=== PATIENT | male | born 1950 | race Caucasian/White ===

== ENCOUNTER → 2021-07-24 | Outpatient (CLI) | payer OTHER ==
[~2021-07-24] MED LIST: ASPI81TA26 PO; BYST10TA2 PO; FISH7.5C PO; GLIM2TAB4 PO; JANU50TA4 PO; LOSA100T45 PO; METF750T36 PO; MULTTAB PO; VITMTA PO; ZETI10TA16 PO
== END ==
LOC: M LABSMTC 10:56
PROVIDERS: ATTEND Anesthesiology
DX: Z01.818 Encounter for other preprocedural examination (principal); Z11.52 Encounter for screening for COVID-19

== ENCOUNTER 2021-07-27 06:34 | Day surgery (SDC) | payer OTHER ==
[~2021-07-27] VITALS: Ht 170.2 cm; Wt 82.1 kg
[~2021-07-27 06:34] MED LIST changes: +NS 1,000 ML IV ONE
[2021-07-27] MEDS ORDERED: propofoL 200 MG/20 ML VIAL As Ordered ONE (06:45)
[2021-07-27] MEDS ORDERED: LIDOCAINE 2% 100MG/5ML SDV (FOR ANES.) As Ordered ONE (06:45)
[2021-07-27 09:00] VITALS: BP 116/69
== END 2021-07-27 09:06 | disposition home or self-care (01) ==
LOC: M OPP 06:34
PROVIDERS: ATTEND Internal Medicine Gastroenterology
DX: Z12.11 Encounter for screening for malignant neoplasm of colon (principal); Z86.010 Personal history of colon polyps; D12.8 Benign neoplasm of rectum; K64.0 First degree hemorrhoids; I10 Essential (primary) hypertension; E78.00 Pure hypercholesterolemia, unspecified; E11.9 Type 2 diabetes mellitus without complications; Z79.82 Long term (current) use of aspirin; Z79.84 Long term (current) use of oral hypoglycemic drugs; Z79.899 Other long term (current) drug therapy

== ENCOUNTER 2021-12-04 05:47 | Inpatient (IN) | payer OTHER ==
[~2021-12-04] VITALS: Ht 170.2 cm; Wt 91.5 kg
[~2021-12-04 05:47] MED LIST changes: +FISH10005 PO; -FISH7.5C PO; -NS 1,000 ML IV ONE
[2021-12-04 06:11] LABS: BASO # 0.1 10^3/uL (0.0-0.2); BASO % 1.1 % (0.0-1.0); EOS # 0.2 10^3/uL (0.0-0.5); EOS % 2.7 % (0.0-3.0); HEMATOCRIT 41.9 % (42.0-52.0); HEMOGLOBIN 14.1 g/dl (13.5-17.5); LYMPH # 2.4 10^3/uL (1.5-5.0); MEAN CORPUSCULAR HEMOGLOBIN 30.3 pg (27.0-33.0); MEAN CORPUSCULAR HGB CONC 33.7 g/dl (32.0-36.5); MEAN CORPUSCULAR VOLUME 89.9 fl (80.0-96.0); MONO # 0.7 10^3/uL (0.0-0.8); MONO % 10.9 % (2.0-8.0); PLATELET COUNT, AUTOMATED 289 10^3/uL (150-450); RED BLOOD COUNT 4.66 10^6/uL (4.30-6.10); WHITE BLOOD COUNT 6.4 10^3/uL (4.0-10.0)
[2021-12-04] MEDS ORDERED: AMLO1TAB24 PO (06:14)
[2021-12-04 06:44] LABS: ALBUMIN 4.1 GM/DL (3.2-5.2); ALT/SGPT 31 U/L (12-78); BILIRUBIN,DIRECT 0.2 MG/DL (0.0-0.2); BILIRUBIN,TOTAL 0.5 MG/DL (0.2-1.0); CK-MB VALUE MASS 3.8 NG/ML (<3.6); LIPASE 547 U/L (73-393); MB/CK RELATIVE INDEX 1.24 (< OR =4); TOTAL PROTEIN 6.9 GM/DL (6.4-8.2)
[2021-12-04 06:45] LABS: INR 0.84; PROTHROMBIN TIME 11.7 SECONDS (12.5-14.5)
[2021-12-04 07:21] LABS: BLOOD UREA NITROGEN 12 MG/DL (7-18); CALCIUM LEVEL 9.5 MG/DL (8.8-10.2); CARBON DIOXIDE LEVEL 24 MEQ/L (21-32); CHLORIDE LEVEL 106 MEQ/L (98-107); FREE T4 1.03 NG/DL (0.76-1.46); GLOMERULAR FILTRATION RATE > 60.0 (>49); GLUCOSE, FASTING 223 MG/DL (70-100); POTASSIUM SERUM 4.1 MEQ/L (3.5-5.1); SODIUM LEVEL 138 MEQ/L (136-145)
[2021-12-04] MEDS ORDERED: METF-839 PO ×2 (08:17)
[2021-12-04] MEDS ORDERED: ROSU5TAB5 PO (08:17)
[2021-12-04] MEDS ORDERED: HOME MED LIST COMPLETE! XX SCH (08:25)
[2021-12-04] MEDS ORDERED: DEXTROSE 50% 50 ML SYRINGE IV PRN (08:40)
[2021-12-04] MEDS ORDERED: INSULIN LISPRO (NovoLOG) PER UNIT SC SCH (08:40)
[2021-12-04] MEDS ORDERED: GLUCOSE 4GM CHEW TABLET PO PRN (08:40)
[2021-12-04] MEDS ORDERED: GLUCAGON INJ 1MG VIAL SC PRN (08:40)
[2021-12-04] MEDS ORDERED: MIDAZOLAM INJ 2MG/2ML VIAL (J2250 PER 1MG) IV PRN (08:40)
[2021-12-04] MEDS ORDERED: PANTOPRAZOLE 40MG VIAL IV SCH (09:00)
[2021-12-04] MEDS ORDERED: ASPIRIN 81 MG CHEW TABLET PO SCH (09:00)
[2021-12-04 09:54] LABS: CK-MB VALUE MASS 8.7 NG/ML (<3.6); MB/CK RELATIVE INDEX 2.76 (< OR =4)
[2021-12-04] MEDS ORDERED: HEPARIN SOD (PORCINE) 5000UNITS/ML 1ML VIAL/SYRINGE IV ONE (10:05)
[2021-12-04] MEDS ORDERED: HEPARIN SOD (PORCINE) 5000UNITS/ML 1ML VIAL/SYRINGE IV PRN (10:05)
[2021-12-04] MEDS ORDERED: HEPARIN DRIP 25,000 UNITS in IV 1 EA IV SCH (10:05)
[2021-12-04 10:53] VITALS: BP 166/82
[2021-12-04] MEDS ORDERED: ENOXAPARIN 40MG/0.4ML SYRINGE (J1650 PER 10MG) SC SCH (21:00)
== END 2021-12-04 10:55 | disposition short-term general hospital (02) | DRG 309 ==
LOC: EDBD 05:47 → M ED 05:47 → M ED INP 08:37
PROVIDERS: ADMIT Internal Medicine Pulmonary Disease; ATTEND Internal Medicine Pulmonary Disease
DX: I44.2 Atrioventricular block, complete (principal); I20.0 Unstable angina; I45.2 Bifascicular block; E11.9 Type 2 diabetes mellitus without complications; I10 Essential (primary) hypertension; Z87.891 Personal history of nicotine dependence; E78.00 Pure hypercholesterolemia, unspecified; Z79.899 Other long term (current) drug therapy; Z79.82 Long term (current) use of aspirin

== ENCOUNTER 2021-12-10 13:52 | Emergency (ER) | payer OTHER ==
[~2021-12-10] VITALS: Ht 170.2 cm; Wt 83.7 kg
[~2021-12-10 13:52] MED LIST changes: +AMLO1TAB24 PO; +METF-839 PO; +ROSU5TAB5 PO
[2021-12-10] MEDS ORDERED: METO1TAB32 (14:03)
[2021-12-10] MEDS ORDERED: CLOP75TA2 (14:03)
[2021-12-10] MEDS ORDERED: ROSU20TA5 (14:03)
[2021-12-10] MEDS ORDERED: LOSA50TA28 (14:03)
[2021-12-10 16:18] VITALS: BP 168/72
== END 2021-12-10 16:18 | disposition home or self-care (01) ==
LOC: M ED 13:52
DX: L76.32 Postprocedural hematoma of skin and subcutaneous tissue following other procedure (principal); Z95.0 Presence of cardiac pacemaker; I25.2 Old myocardial infarction; E11.9 Type 2 diabetes mellitus without complications; I10 Essential (primary) hypertension; F10.10 Alcohol abuse, uncomplicated; Z95.5 Presence of coronary angioplasty implant and graft; Z86.79 Personal history of other diseases of the circulatory system; Z79.82 Long term (current) use of aspirin; Z79.811 Long term (current) use of aromatase inhibitors; Z79.4 Long term (current) use of insulin; Z79.899 Other long term (current) drug therapy

== ENCOUNTER → 2023-08-29 | Outpatient (REF) | payer OTHER ==
[~2023-08-29] MED LIST changes: +CLOP75TA2; +EZET10TA58 PO; -LOSA100T45 PO; +LOSA100T46 PO; +LOSA50TA28; +METO1TAB32; +ROSU20TA61; +ROSU5TAB40 PO; -ROSU5TAB5 PO; -ZETI10TA16 PO
[2023-09-03 00:32] LABS: BORRELIA SPECIES DNA NOT DETECTED (NOT DETECT)
[2023-09-03 00:52] LABS: Babesia microti NOT DETECTED (NOT DETECT); Ehrlichia chaffeensis NOT DETECTED (NOT DETECT)
[2023-09-03 00:57] LABS: Anaplasma phagocytophilum NOT DETECTED (NOT DETECT)
[2023-09-03 14:12] LABS: LYME TOTAL ANTIBODY CIA 2.13 Index (<=0.90)
[2023-09-05 23:37] LABS: LYME AB IGG BY CIA 6.18 Index (<=0.90); LYME AB IGM BY CIA 3.38 Index (<=0.90)
== END ==
LOC: M LAB REF 12:33
PROVIDERS: ATTEND Internal Medicine
DX: Z11.59 Encounter for screening for other viral diseases (principal)

== ENCOUNTER → 2023-09-18 | Outpatient (CLI) | payer OTHER | LOC: M RAD 07:31 | PROVIDERS: ATTEND Internal Medicine | DX: K76.0 Fatty (change of) liver, not elsewhere classified (principal); R74.8 Abnormal levels of other serum enzymes ==

== ENCOUNTER → 2024-02-12 | Outpatient (REF) | payer OTHER ==
[~2024-02-12] MED LIST changes: -BYST10TA2 PO; +BYST1TAB3 PO; -ROSU20TA61; +ROSU20TA86; -ROSU5TAB40 PO; +ROSU5TAB49 PO
== END ==
LOC: M LAB REF 12:25
PROVIDERS: ATTEND Internal Medicine
DX: Z13.89 Encounter for screening for other disorder (principal)